=== PATIENT | male | born 1985 | race Caucasian/White ===

== ENCOUNTER 2021-01-23 11:45 | Emergency (ER) | payer MEDICAID ==
[~2021-01-23] VITALS: Ht 185.4 cm; Wt 104.3 kg
[2021-01-23 11:50] VITALS: BP_SYST 162
[2021-01-23] MEDS ORDERED: LIDOCAINE 1%, 20 ML MDV 20 ML ONE (12:20)
[2021-01-23] MEDS ORDERED: LIDOCAINE 1% 10 MG/ML, 20 ML MDV INJ ONE (12:30)
[2021-01-23] MEDS ORDERED: BACITRACIN 1 GM OINT TP ONE (12:47)
[2021-01-23 12:55] VITALS: BP_SYST 127
== END 2021-01-23 12:55 | disposition home or self-care (01) ==
LOC: SED 11:45
DX: S81.812A Laceration without foreign body, left lower leg, initial encounter (principal); W25.XXXA Contact with sharp glass, initial encounter; Y93.89 Activity, other specified; Y92.89 Other specified places as the place of occurrence of the external cause; Y99.8 Other external cause status
CPT/HCPCS: 12002; 99282; J2001

== ENCOUNTER 2022-02-04 18:14 | Emergency (ER) | payer MEDICAID ==
[~2022-02-04] VITALS: Ht 182.9 cm; Wt 99.8 kg
[2022-02-04 18:26] VITALS: BP_SYST 144
[2022-02-04] MEDS: LORazepam 2 MG/ML VIAL IVP ONE (18:55)
[2022-02-04] MEDS: NACL 0.9% 2,000 ML IV ONE (18:55)
[2022-02-04 19:03] LABS: BASOPHILS # (AUTO) 0.1 K/uL (0.0-0.2); EOSINOPHILS # (AUTO) 0.1 K/uL (0.0-0.4); EOSINOPHILS % (AUTO) 2.2 % (0.0-4.0); HEMOGLOBIN 15.4 g/dL (14.0-18.0); LYMPHOCYTES # (AUTO) 1.4 K/uL (1.0-5.5); LYMPHOCYTES % (AUTO) 25.1 % (20.5-51.5); MEAN CORPUSCULAR HEMOGLOBIN 36 pg (27-31); MEAN CORPUSCULAR HGB CONC 34 % (32-36); MEAN CORPUSCULAR VOLUME 106 fL (79.0-98.0); MONOCYTES # (AUTO) 0.6 K/uL (0.0-1.0); NEUTROPHILS # (AUTO) 3.5 K/uL (1.8-7.7); NEUTROPHILS % (AUTO) 60.7 % (40.0-70.0); PLATELET COUNT (AUTO) 229 K/uL (130-430); RED BLOOD CELL COUNT(AUTO) 4.25 MIL/uL (4.2-6.2); RED CELL DISTRIBUTION WIDTH 16.1 % (9.0-15.0); WHITE BLOOD COUNT (AUTO) 5.7 K/uL (4.8-10.8)
[2022-02-04 19:13] LABS: CALCIUM 7.9 mg/dL (8.4-11.0); CREATININE 0.56 mg/dL (0.55-1.30); POTASSIUM 3.8 mmol/L (3.5-5.1)
[2022-02-04 19:15] LABS: INR 0.9 (0.80-1.20); PROTHROMBIN TIME 9.4 SECS (9.5-12.5)
[2022-02-04 19:21] LABS: ALBUMIN 3.2 g/dL (3.4-4.8); TOTAL BILIRUBIN 0.3 mg/dL (0.0-1.0)
[2022-02-04 19:22] LABS: C-REACTIVE PROTEIN QUANT 0.5 mg/dL (0-0.5)
[2022-02-04 20:05] VITALS: BP_SYST 144
== END 2022-02-04 20:05 | disposition home or self-care (01) ==
LOC: SED 18:14
DX: F10.239 Alcohol dependence with withdrawal, unspecified (principal)
CPT/HCPCS: 36415; 74176; 76376; 80053; 82150; 83605; 83615; 83690; 85025; 85610; 85730; 86140; 96361; 96374; 99284; J2060; J7030